=== PATIENT | male | born 1990 | race Caucasian/White ===

== ENCOUNTER 2020-02-25 14:14 | Emergency (ER) | payer BC, OTHER, SELFPAY ==
[2020-02-25 14:45] VITALS: BP 121/76; PULSE 96; RESP 18; TEMP 36.7; O2SAT 100; BMI 28.5
--- NOTE | 2020-02-25 14:52 | ED_ITS ---
HPI - Extremity Problem General: Chief complaint: Extremity Injury, Lower Stated complaint: R ankle injury Time Seen by Provider: 02/25/20 14:52 Source: patient Mode of arrival: ambulatory Limitations: no limitations History of Present Illness: HPI Narrative: Patient comes in for injury to the right ankle and lower extremity. Patient states that he was riding his horse and it rolled over on him injuring his right lower extremity. Patient comes in today due to pain in the right lateral ankle. Patient appears well. Patient appears in mild pain. Review of Systems General: Reports: 10 or more systems reviewed and unremarkable except in HPI and below Musc: Reports: joint pain and joint swelling PFSH ED PFSH: Social History Smoking and tobacco status: never smoked Physical Exam Const: COMMON NORMALS: no apparent distress and oriented x3 GENERAL APPEARANCE: cooperative HENMT: COMMON NORMALS: normocephalic, TM's normal bilaterally and external nose normal HEAD & SCALP: normal to inspection and normocephalic NOSE: external nose normal TYMPANIC MEMBRANE: TM's normal bilaterally MOUTH: oral and palatal mucosa normal THROAT: posterior oropharynx normal Eye: GENERAL EYE: normal appearance of both eyes Neck/C-Spine: COMMON NORMALS: full ROM Lymph: LYMPHATIC: no lymphadenopathy noted Chest: COMMONS NORMALS: inspection of chest normal Resp: COMMON NORMALS: normal respiratory effort EFFORT & INSPECTION: Yes able to speak in complete sentences Cardio: COMMON NORMALS: regular rate and regular rhythm RATE: regular rate RHYTHM: regular rhythm GI: COMMON NORMALS: non-tender : COMMON NORMALS: Yes no CVA tenderness BLADDER/KIDNEY EXAM: Yes no CVA tenderness Back/Pelvis: COMMON NORMALS: no CVA tenderness and thoracic and lumbar spine normal to inspection Extremity: NARRATIVE EXTREMITY EXAM: Right lateral ankle has some mild sw elling, minimal ecchymosis, and tenderness to palpation. Distal pulses and sensation is intact. Normal capillary refill is noted. Neuro: COMMON NORMALS: oriented x3 and moves all extremities Psych: COMMON NORMALS: mental status grossly normal and cooperative Skin: COMMON NORMALS: no rashes or lesions noted GENERAL SKIN EXAM: no rashes or lesions noted Course Vital Signs: Vital signs: Vital Signs Temperature 98.0 F 02/25/20 14:45 Pulse Rate 96 02/25/20 14:45 Respiratory Rate 18 02/25/20 14:45 Blood Pressure 121/76 02/25/20 14:45 Pulse Oximetry 100 02/25/20 14:45 MDM - Extremity (Nontraumatic) MDM Narrative: Medical decision making narrative: Patient comes in today for complaints of right ankle injury. On exam we note no significant deformity, mild swelling and tenderness to the lateral ankle. Cap refill and sensation is normal. Differential diagnosis includes fracture, sprain, contusion. X-ray of the tib-fib and foot were negative for any fracture or dislocation. Reviewed exam with patient recommended treatment for ankle sprain. Patient reports understanding of care plan and need for follow-up. Discharge Plan Discharge Patient Disposition: Home, Self-Care Clinical Impression: Ankle sprain and strain Condition: Stable Prescriptions: No Action No Known Home Medications RF: 0 Discharge Orders: Discharge Order (Routine); Ordered 02/25/20 Ordered By: Toro Hensley Referrals: Nesha Roach FNP-C [Family Provider] - Discharge Diet: Usual diet Discharge Activity: Increase activity as tolerated Patient Instructions: Ankle Sprain (ED) Activity Restrictions/Additional Instructions: Activity as tolerated, acetaminophen or ibuprofen for pain. Ice or heat for further pain relief. Elastic bandage for comfort and swelling. Follow-up with primary care in 1 week for recheck. Return to the ER for worsening signs and symptoms or new concerns. Coding Level of Care Code ED Member Services Representative for Anjelica Murillo Exam Comprehensive
--- NOTE | 2020-02-25 14:54 | XR_ITS ---
WS: [id number] TIBIA-FIBULA RIGHT TECHNIQUE: 2 views of the right tibia-fibula CLINICAL INFORMATION: injury COMPARISON: None. FINDINGS: No evidence of acute fracture dislocation. Normal tibiotalar joint. Normal visualized tibia and fibul a. Normal soft tissues. XR/XR tibia fibula RT 2V [id number] IMPRESSION: Normal visualized tibia and fibula
--- NOTE | 2020-02-25 14:54 | XR_ITS ---
WS: [id number] FOOT RIGHT TECHNIQUE: 3 views of the right foot CLINICAL INFORMATION: injury COMPARISON: None. FINDINGS: Normal tarsal metatarsal alignment. Normal calcaneus. Normal visualized talar dome. Hypertrophic odell nges along the ankle mortise. Hypertrophic changes along the talar neck. No acute fractures XR/XR foot RT min 3V* [id number] IMPRESSION: No acute fractures
[2020-02-25 16:04] VITALS: BP 136/78; PULSE 68; RESP 18; TEMP 36.9; O2SAT 98
== END 2020-02-25 15:30 | disposition home or self-care (01) ==
PROVIDERS: Emergency Provider Nurse Practitioner Family; Family Provider Nurse Practitioner; PCP Nurse Practitioner
DX: S93.401A Sprain of unspecified ligament of right ankle, initial encounter (principal); S96.911A Strain of unspecified muscle and tendon at ankle and foot level, right foot, initial encounter; V80.919A Animal-rider injured in unspecified transport accident, initial encounter
CPT/HCPCS: 12345; 73590; 73630; 99281; 99283

== ENCOUNTER → 2023-03-06 16:18 | Outpatient (BNVA) | payer OTHER, SELFPAY | PROVIDERS: Family Provider Nurse Practitioner; PCP Nurse Practitioner Family; Visit Provider Nurse Practitioner Family | DX: M25.562 Pain in left knee (principal) | CPT/HCPCS: 73562 ==

== ENCOUNTER 2023-03-17 14:07 | Outpatient (CLI) | payer OTHER, SELFPAY ==
--- NOTE | 2023-03-17 13:45 | MR_ITS ---
WS: [id number] MRI LEFT KNEE NONCONTRAST TECHNIQUE: Axial PD, coronal PD fat sat, coronal PD, sagittal PD, and sagittal PD fat-sat images obta ined. CLINICAL INFORMATION: M25.562 - Pain in left knee COMPARISON: MRI 2010 FINDINGS: Distal quadriceps and patella tendons are intact. Normal ACL and PCL. Minimal joint effusio n. Prepatellar and infrapatellar soft tissue edema. Recommend correlation for prepatellar bursitis. M [id number] chondromalacia patella. Small amount of proximal patella tendinitis Mild narrowing of the medial and lateral joint compartments with chronic thinning of the menisci. No acute appearing meniscal tears. Medial and lateral collateral ligaments are intact. Normal popliteal fossa. Small ganglion cysts at the fibula head unchanged since 2009. MR/MR knee LT wo con* [id number] IMPRESSION: 1. ACL and PCL appear intact. 2. Prepatellar and infrapatellar soft tissue edema. Recommend correlation for prepatellar bursitis. Tiny amount of tendinitis proximal patella tendon 3. Mild chronic thinning of the medial and lateral meniscus appear intact. 4. Tiny joint effusion. 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 5. Normal medial and lateral collateral ligaments. Outbridge grading: grade II: blister-like swelling/fraying of articular cartila ge extending to surface
== END 2023-03-17 14:08 | disposition home or self-care (01) ==
LOC: RAD 14:11
PROVIDERS: PCP Nurse Practitioner Family; Visit Provider Nurse Practitioner Family
DX: M25.562 Pain in left knee (principal); M79.89 Other specified soft tissue disorders; M22.42 Chondromalacia patellae, left knee
CPT/HCPCS: 73721

== ENCOUNTER → 2025-06-24 10:40 | Outpatient (BNVA) | payer OTHER, SELFPAY | PROVIDERS: PCP Nurse Practitioner Family; Visit Provider Nurse Practitioner Family | DX: M25.511 Pain in right shoulder (principal); Z13.6 Encounter for screening for cardiovascular disorders | CPT/HCPCS: 73030; 80053; 80061; 84443; 85025 ==

== ENCOUNTER 2025-06-29 10:00 | Outpatient (CLI) | payer OTHER, SELFPAY ==
--- NOTE | 2025-06-29 10:15 | MR_ITS ---
WS: [id number] MRI RIGHT SHOULDER HISTORY: M25.511 - Pain in right shoulder COMPARISON: Radiographs 06/24/2025 TECHNIQUE: Multiplanar sequences of the shoulder joint are submitted. Normal AC joint. No significant narrowing of the joint space. No dislocation. Tiny amount of fluid in the subdeltoid bursa. No subacromial impingement. There is an os acromion. No displacement or fluid along the os acromion. Biceps tendon is present in the bicipital groove. There is increased fluid with intermediate signal surrounding the biceps tendon. No definite tendon tear. Moderate size joint effusion. There is distention of the axillary pouch with a few small intermediate signal changes. Tiny insertion site tear of the supraspinatus tendon. No retraction of the tendon. Mild tendinopathy more proximally within the tendon. Subscapularis tendon is thickened and edematous d istally at the attachment to the humeral head. No full-thickness tear. Partial tear involving the subscapularis tendon is likely as there is fluid closely associated with the distal tendon. There is no retraction or muscle atrophy. Infraspinatus and teres minor tendons are normal. Increased T2 signal in the rotator cuff interval. Increased T2 signal with heterogeneity in the coracohumeral ligament. SLAP tear is identified. MR/MR shoulder RT wo con* [id number] IMPRESSION: 1. Moderate size, mildly complex joint effusion. 2. Biceps tendon is present in the bicipital groove with no tear. Biceps tenos ynovitis. There is fluid in the tendon sheath and additional intermediate signa l. 3. Small insertion site of the supraspinatus tendon. 4. Distal subscapularis tendon thickening and partial tear is suspected. There is significant edema in the distal supraspinatus tendon extending through the rotator cuff interval and extending adjacent to the biceps tendon. Rotator cuff interval edema. 5. Biceps tendon through the rotator cuff interval appears intact. 6. SLAP tear. 7. Coracohumeral ligament sprain. 8. Os acromion. No associated edema or displacement.
== END 2025-06-29 10:01 | disposition home or self-care (01) ==
PROVIDERS: PCP Nurse Practitioner Family; Visit Provider Nurse Practitioner Family
DX: M25.511 Pain in right shoulder (principal); G89.29 Other chronic pain; S43.411A Sprain of right coracohumeral (ligament), initial encounter; S43.431A Superior glenoid labrum lesion of right shoulder, initial encounter; X58.XXXA Exposure to other specified factors, initial encounter; M25.411 Effusion, right shoulder; M65.811 Other synovitis and tenosynovitis, right shoulder; R93.7 Abnormal findings on diagnostic imaging of other parts of musculoskeletal system; M67.813 Other specified disorders of tendon, right shoulder; R60.0 Localized edema
CPT/HCPCS: 73221

== ENCOUNTER → 2025-08-16 08:58 | Outpatient (BNVA) | payer OTHER, SELFPAY | PROVIDERS: PCP Nurse Practitioner Family; Visit Provider Student in an Organized Health Care Education/Training Program | DX: M25.511 Pain in right shoulder (principal); G89.29 Other chronic pain; M75.41 Impingement syndrome of right shoulder; M75.101 Unspecified rotator cuff tear or rupture of right shoulder, not specified as traumatic; S43.431A Superior glenoid labrum lesion of right shoulder, initial encounter; W55.22XA Struck by cow, initial encounter | CPT/HCPCS: 73030 ==